=== PATIENT | male | born 1990 | race Two or more races ===

== ENCOUNTER 2018-11-14 01:41 | Emergency (ER) | payer OTHER ==
[~2018-11-14] VITALS: Ht 177.8 cm; Wt 62.3 kg
[2018-11-14 02:12] LABS: BASOPHIL % 0.6 % (0-2); PLATELET COUNT 260 x10^3mcL (130-400); RED CELL DISTRIBUTION WIDTH 14.2 % (11.5-14.5)
[2018-11-14 02:14] LABS: UA SPECIFIC GRAVITY <=1.005 (1.005-1.035); microscopic required? YES; urine erythrocyte NEGATIVE (NEGATIVE)
[2018-11-14 02:25] LABS: CALCIUM 8.4 mg/dL (8.5-10.1); CARBON DIOXIDE 28.3 mmol/L (21-32); CHLORIDE SERUM 103 mmol/L (98-107); CREATININE SERUM 0.8 mg/dL (0.7-1.3); GFR1 > 60 mL/min; GLUCOSE SERUM 117 mg/dL (74-106); POTASSIUM SERUM 3.6 mmol/L (3.5-5.1); SODIUM SERUM 140 mmol/L (136-145)
[2018-11-14 05:20] VITALS: BP 112/64
== END 2018-11-14 05:20 | disposition home or self-care (01) ==
LOC: ED 01:41
PROVIDERS: Specialist
DX: N45.1 Epididymitis (principal)
CPT/HCPCS: 87491; 87591; J0696; J1885; J2405; J3010; J3490; J7030; J7050; J7060; Q0092